=== PATIENT | female | born 1995 | race Caucasian/White ===

== ENCOUNTER 2017-07-08 23:05 | Inpatient (IN) ==
--- NOTE | 2017-07-08 23:37 | Emergency Department Report ---
Fever HPI - General Chief Complaint: Fever Stated Complaint: fever,shakes,v/d Time Seen by Provider: 07/08/17 23:43 Source: patient Limitations: no limitations - History of Present Illness HPI Narrative: Pt is a 22 yo female who presents to ED with fever and chills. Sxs started 5 days ago with fever. Has headache, shaking, sweating, diarrhea yesterday and vomiting x 2. ST. Fatigue. Cough started today. Has tried cold and flu nighttime medicine an ibuprofen. Sxs improve for a short time after taking meds. LMP 2 wks ago. Sexually active and doesn't use any form of birthcontrol. States period was only 2 days long and it is usually 5-7 days. Requests PG test. - Related Data Home Medications Medication Instructions Recorded Confirmed No known Home medications [No home 07/08/17 07/08/17 meds] Allergies Allergy/AdvReac Type Severity Reaction Status Date / Time No Known Allergies Allergy Unverified 07/08/17 23:17 Review of Systems All systems: reviewed and negative except as stated (fever, chills, headache, n/ v, dysuria, small voids at a time, cough) [facility] Patient Stated Medical History Asthma Yes Hx Urinary Tract Infection Yes Chlamydia Yes Surgical History: c/s x 2 Family History: F- - lung cancer M-asthma, IBS, depression - Social History Smoking status: Current every day smoker (1/2ppd) Substance use type: marijuana (usually qd but hasn't while she has been sick) Alcohol intake frequency: 3 or more drinks per day Housing: house Household members: family (mom) 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 Currently uninsured. Physical Exam - Limitations Limitations: no limitations - General General appearance: in no apparent distress - Normal Exams: Head:: Normocephalic without trauma Eyes:: Pupils are PERRLA w/ EOMI Neck:: Full range of motion, without adenopathy Chest/Respirations:: Clear all roberts Cardiovascular:: capillary refill Integumentary:: No rashes Neurological:: Patient is alert, and oriented, exams w/o gross deficits Psychiatric:: Patient exhibits, appropriate attention - Neck Neck exam: Absent: lymphadenopathy - Cardiovascular Cardiovascular exam: Present: tachycardia - Abdominal Exam Abdominal exam: Present: soft, tenderness (R flank and R lateral side), normal bowel sounds. Absent: distention Course Vital Signs Temperature 103.7 F H 07/08/17 23:15 Pulse Rate 138 H 07/08/17 23:15 Respiratory Rate 19 07/08/17 23:15 Blood Pressure 125/73 07/08/17 23:15 Pulse Oximetry 97 07/08/17 23:15 Temperature 103.1 F H 07/09/17 01:01 Pulse Rate 138 H 07/08/17 23:15 Respiratory Rate 19 07/08/17 23:15 Blood Pressure 125/73 07/08/17 23:15 Pulse Oximetry 97 07/08/17 23:15 Fever - MDM Narrative Medical decision making narrative: Patient with pyelonephritis based on + UA, R flank pain, elevated WBC and fever. SIRS: tachy, elevated WBC and fever. Neg lactate. Will check BCx2 prior to starting atbx. Check UC. Continue IV fluids. Pt does not have insurance or PCP. Rec admission for IV atbx, meds for n/v, further IVF's as pt is at risk of lack of f-u care should she be treated on OP basis. Dr. Walter contacted and accepts pt for admission. - Lab Data Attestation: I reviewed the patient's lab results. Result diagrams: 07/09/17 00:05 07/09/17 00:05 Lab Results 07/09/17 07/09/17 07/09/17 Range/Units 00:04 00:05 00:05 WBC 17.2 H (4.5-11.0) T/MM3 RBC 3.79 L (4.00-5.20) M/MM3 Hgb 11.7 L (12-16) GM/DL Hct 35.1 L (36-46) % MCV 92.6 (80-100) UM3 MCH 30.9 (26-34) UUG MCHC 33.3 (31-37) GM/DL RDW Std Deviation 45.6 (36.9-50.2) FL Plt Count 244 (130-400) T/MM3 MPV 10.1 (9.4-12.4) UM3 Immature Gran % (Auto) Not performed Neut % (Auto) Not performed Lymph % (Auto) Not performed Harmon % (Auto) Not performed Eos % (Auto) Not performed Baso % (Auto) Not performed Neut # (Auto) Not performed Lymph # (Auto) Not performed Harmon # (Auto) Not performed Eos # (Auto) Not performed Baso # (Auto) Not performed Abs Immat Gran (auto) Not performed Turbidity (0-20) Sodium (134-144) MEQ/L Potassium (3.6-5) MEQ/L Chloride (98-107) MEQ/L Carbon Dioxide (22-30) MEQ/L Anion Gap (5-15) meq/L BUN (7-17) MG/DL Creatinine (0.7-1.2) mg/dL GFR Calculation BUN/Creatinine Ratio (6-26) RATIO Glucose (65-110) MG/DL Calculated Osmolality (261-280) MOSM/KG Calcium (8.4-10.2) MG/DL Icterus Index (0-7) Plasma Lactate (0.6-2.2) MMOL/L Specimen Hemolysis (0-25) Ur Collection Type Urine, void-cc/notcc Urine Color Yellow (YELLOW) Urine Clarity Sl cloudy Urine pH 5.5 (5.0-8.0) Ur Specific [place] 1.010 L (1.015-1.025) Urine Protein 1+ A (NEGATIVE) Urine Glucose (UA) Negative (NEGATIVE) Urine Ketones Negative (NEGATIVE) Urine Occult Blood 2+ A (NEGATIVE) Urine Nitrate Negative (NEGATIVE) Urine Bilirubin Negative (NEGATIVE) Urine Urobilinogen 2.0 (NORMAL) EU/DL Ur Leukocyte Esterase 1+ A (NEGATIVE) Urine RBC 10-20 H (0-3) /HPF Urine WBC 10-20 H (0-5) /HPF Ur Squamous Epith Cells >50 Urine Bacteria 1+ H (NEGATIVE) Ur Culture Indicated? Cult not indicated Urine Test Negative (Negative) 07/09/17 Range/Units 00:05 WBC (4.5-11.0) T/MM3 RBC (4.00-5.20) M/MM3 Hgb (12-16) GM/DL Hct (36-46) % MCV (80-100) UM3 MCH (26-34) UUG MCHC (31-37) GM/DL RDW Std Deviation (36.9-50.2) FL Plt Count (130-400) T/MM3 MPV (9.4-12.4) UM3 Immature Gran % (Auto) Neut % (Auto) Lymph % (Auto) Harmon % (Auto) Eos % (Auto) Baso % (Auto) Neut # (Auto) Lymph # (Auto) Harmon # (Auto) Eos # (Auto) Baso # (Auto) Abs Immat Gran (auto) Turbidity < 20 (0-20) Sodium 135 (134-144) MEQ/L Potassium 3.3 L (3.6-5) MEQ/L Chloride 98 (98-107) MEQ/L Carbon Dioxide 26 (22-30) MEQ/L Anion Gap 11 (5-15) meq/L BUN 11.0 (7-17) MG/DL Creatinine 0.8 (0.7-1.2) mg/dL GFR Calculation 90 BUN/Creatinine Ratio 14 (6-26) RATIO Glucose 115 H (65-110) MG/DL Calculated Osmolality 260 L (261-280) MOSM/KG Calcium 8.7 (8.4-10.2) MG/DL Icterus Index < 2 (0-7) Plasma Lactate 0.9 (0.6-2.2) MMOL/L Specimen Hemolysis < 15 (0-25) Ur Collection Type Urine Color (YELLOW) Urine Clarity Urine pH (5.0-8.0) Ur Specific [place] (1.015-1.025) Urine Protein (NEGATIVE) Urine Glucose (UA) (NEGATIVE) Urine Ketones (NEGATIVE) Urine Occult Blood (NEGATIVE) Urine Nitrate (NEGATIVE) Urine Bilirubin (NEGATIVE) Urine Urobilinogen (NORMAL) EU/DL Ur Leukocyte Esterase (NEGATIVE) Urine RBC (0-3) /HPF Urine WBC (0-5) /HPF Ur Squamous Epith Cells Urine Bacteria (NEGATIVE) Ur Culture Indicated? Urine Test (Negative) Disposition Clinical Impression: Pyelonephritis [place]position: 02 [place] [facility] [place] Condition: Stable Time of Disposition: 01:05 - Seen By: midlevel
[2017-07-08] MEDS ORDERED: NS 1,000 ML IV ONE (23:53)
[2017-07-08] MEDS ORDERED: PROCHLORPERAZINE 10 MG/2 ML INJECTION IVP ONE (23:54)
[2017-07-08] MEDS ORDERED: SALINE FLUSH 10ml SYRINGE IV PRN (23:55)
--- OUTSIDE RECORDS SUMMARY | 2017-07-09 00:04 | External Medical Summary | Continuity of Care Document ---
:1995 Author Organization [facility] Allergies Active Description Code Type Severity Reaction Onset Reported/ Identified Relationship Clinical to Patient Status Yes No Known No Drug Unknown N/A 12/04/2013 Allergies Known Aller Aller gy gies Medications There is no data. Problems Date Dx Attending Type Code Diagnosis Diagnosed By Coded 12/04/2013 Tiera ROYAL, A 654.23 PREV Niurka C DELIVERY, ANTEPARTUM COND OR COMPLIC 12/05/2013 Tiera ROYAL, F 285.9 ANEMIA NOS Niurka C 12/05/2013 Tiera ROYAL, F 642.31 TRANS Niurka C HYPERTEN-DELIVERED 12/05/2013 Tiera ROYAL, F 648.21 ANEMIA-DELIVERED Niurka C 12/05/2013 Tiera ROYAL, F 654.21 PREV Niurka C DELIVRY W/ OR W/O MENT ANTEPART COND 12/05/2013 Tiera ROYAL, A 654.23 PREV Niurka C DELIVERY, ANTEPARTUM COND OR COMPLIC 12/05/2013 Tiera ROYAL, F 663.81 CORD COMPLICAT Niurka C NEC-DELIV 12/05/2013 Tiera ROYAL, F V04.81 ND FOR PROPHYLACTIC Niurka C VACCIN AND INOCULATION, INFLUE 12/05/2013 Tiera ROYAL, F V07.2 PROPHYLACT Niurka C IMMUNOTHERAPY 12/05/2013 Tiera ROYAL, F V27.0 DELIVER-SINGLE Niurka C LIVEBORN Procedures Code Description Performed By Performed On 74.1 LOW CERVICAL Tiera ROYAL, Niurka Cuellar 12/05/2013 Results Test Result Range CBC - 12/04/13 21:17 MEAN CELL HGB 29.5 pg 27.0-33.0 MEAN CELL HGB CONCENTRATION 33.2 g/dL 32.0-37.0 MEAN CELL VOLUME 88.9 fl 80.0-100.0 RED BLOOD CELL 3.96 m/cumm 4.00-6.00 RED CELL DISTRIBUTION WIDTH 12.8 % 11.0-15.6 WHITE BLOOD CELL 8.6 k/cumm 5.0-10.0 HEMOGLOBIN 11.7 gm/dL 12.0-16.0 HEMATOCRIT 35.2 % 37.0-47.0 PLATELET COUNT 205 k/cumm 150-400 METABOLIC PANEL, COMPREHN - 12/04/13 21:17 POTASSIUM 3.7 mmol/L 3.5-5.3 EST GFR (MDRD) > 60 mL/min > 59 ANION GAP 10 mmol/L 5-15 GLUCOSE 78 mg/dL 70-99 CALCIUM 9.0 mg/dL 8.5-10.1 BLOOD UREA NITROGEN 8 mg/dL 7-20 CREATININE 0.6 mg/dL 0.5-1.0 SODIUM 139 mmol/L 135-148 CHLORIDE 106 mmol/L 98-110 AST/SGOT 36 Units/L 10-37 ALT/SGPT 20 Units/L < 66 CARBON DIOXIDE 23 mmol/L 21-32 TOTAL PROTEIN 6.6 gm/dL 6.4-8.2 ALBUMIN 2.3 gm/dL 3.4-5.0 BILI TOTAL 0.2 mg/dL 0.0-1.0 ALKALINE PHOSPHATASE TOTAL 211 IU/L 45-117 URIC ACID - 12/04/13 21:17 URIC ACID 5.0 mg/dL 2.6-6.0 LACTATE DEHYDROGENASE (LDH/LD) - 12/04/13 21:17 LACTATE DEHYDROGENASE (LDH/LD) 214 Units/L 81-234 CBC - 12/05/13 15:45 MEAN CELL HGB 29.6 pg 27.0-33.0 MEAN CELL HGB CONCENTRATION 33.2 g/dL 32.0-37.0 MEAN CELL VOLUME 89.0 fl 80.0-100.0 RED BLOOD CELL 4.09 m/cumm 4.00-6.00 RED CELL DISTRIBUTION WIDTH 12.9 % 11.0-15.6 WHITE BLOOD CELL 8.4 k/cumm 5.0-10.0 HEMOGLOBIN 12.1 gm/dL 12.0-16.0 HEMATOCRIT 36.4 % 37.0-47.0 PLATELET COUNT 214 k/cumm 150-400 HEMOGLOBIN - 12/05/13 21:07 MEAN CELL VOLUME 87.3 fl 80.0-100.0 HEMOGLOBIN 11.0 gm/dL 12.0-16.0 HEMOGLOBIN - 12/06/13 05:42 MEAN CELL VOLUME 88.0 fl 80.0-100.0 HEMOGLOBIN 9.7 gm/dL 12.0-16.0 Encounters ACCT No. Visit Discharge Status Pt. Type Provider Facility Loc./Unit Complaint Date/Time [id number] 12/05/2013 12/07/2013 DIS Inpatient Tiera [id number] 14:53:00 15:47:00 MD [facility] [id number] 12/04/2013 12/04/2013 DIS Emergency Tiera [id number] 20:03:00 22:36:00 MD [facility] [id number] 10/27/2013 10/27/2013 DIS Outpatient Tiera ROSASU [id number] 10:05:00 10:05:00 MD [facility] [id number] 08/07/2013 08/07/2013 DIS Outpatient cathy ROSASU [id number] 15:11:00 15:11:00 MD [facility] [id number] 12/21/2013 ACT Document 13:27:29 Registration
[2017-07-09] MEDS: SALINE FLUSH 10ml SYRINGE IVF PRN (00:17)
[2017-07-09] MEDS ORDERED: LEVOFLOXACIN PB 750 MG/150 ML BAG IV SCH (01:15)
[2017-07-09] MEDS ORDERED: CEFTRIAXONE (ER USE ONLY) 1 GM in NS 100 ML IV ONE (01:17)
[2017-07-09] MEDS ORDERED: ACETAMINOPHEN 325 MG TABLET PO PRN (01:59)
[2017-07-09] MEDS ORDERED: CEFTRIAXONE (ER USE ONLY) 1 GM in NS 100 ML IV SCH (01:59)
[2017-07-09] MEDS ORDERED: MORPHINE SULFATE 4mg INJECTION IVP PRN (01:59)
[2017-07-09] MEDS ORDERED: NS 1,000 ML IV SCH (01:59)
--- NOTE | 2017-07-09 02:07 | History & Physical Report ---
History of Present Illness Date: 07/09/17 Chief complaint: i feel bad HPI: This is a 22 y/o female who has been experiencing nausea/vomiting with dysuria for the past 5 days. The patient has intermittent diarrhea as well. The patent 's fever has bee as high as 103. She has chills and sweats with this. Further the patient has dysuria, back pain right greater than left. In the ED patient meets sepsis criteria. She is not and her urine is infected. Currently the patient does not have insurance and there were some concerns regarding if she would followup with treatment prescribed. At this time she will be admitted for ivf, iv antibiotics and pain medications. Review of Systems Review of systems: negative except for described above. 10 point RoS Past Medical History Surgical History: c/s x 2 Family History Updates: none significant Family History: As Above - Social History Smoking status: Current every day smoker (1/2ppd) Alcohol intake frequency: 3 or more drinks per day Housing: house Household members: family Current occupational status: employed Current residence: Assisted Medications Home Medications Medication Instructions Recorded Confirmed Type No known Home medications [No home 07/08/17 07/08/17 History meds] Allergies Allergy/AdvReac Type Severity Reaction Status Date / Time No Known Allergies Allergy Unverified 07/08/17 23:17 Exam Vital Signs: Temperature 103.1 F H 07/09/17 01:01 Pulse Rate 128 H 07/09/17 01:15 Respiratory Rate 16 07/09/17 01:15 Blood Pressure 114/60 07/09/17 01:15 Pulse Oximetry 99 07/09/17 01:15 Telemetry Rhythm: Sinus Rhythm - Constitutional Present: mild distress, average body habitus, cooperative - Routine HEENT Exam Head: Present: normocephalic, atraumatic Eye: Present: EOMI ENT: Present: mucous membranes dry - Routine Neck Exam Present: supple - Routine Respiratory Exam Present: CTA bilaterally - Routine Cardiovascular Exam Present: RRR, no murmur - Routine Abdominal Exam Present: soft, firm Comments: mild tender to palpation. - Routine Extremities Exam Present: no edema, non tender, full ROM - Routine Back/Spine/Pelvis Exam Back/Spine: Present: CVA tenderness - Routine Skin Exam Present: intact - Routine Neurological Exam Present: alert, oriented X3, normal tone, normal speech - Routine Psychiatric Exam Present: normal affect, normal thought process Results - Labs CBC & Chem 7: 07/09/17 07:16 07/09/17 07:16 Labs: results reviewed and will be discussed below Assessment and Plan (1) Pyelonephritis Current visit: Yes Status: Acute (2) Hypokalemia Current visit: Yes Status: Acute (3) Sepsis Current visit: Yes Status: Acute (4) Tobacco abuse Current visit: Yes Status: Acute (5) Alcohol abuse Current visit: Yes Status: Acute Assessment and Plan: 1. pyelonephritis acute POA: fluids, rocephin, iv pain meds, oral pain meds, tyl and motrin for fever control, adjust based on culture results 2. sepsis acute POA: fluids, repeat markers in am. lactic acid okay 3. hypokalemia acute POA: gi loss, replace and recheck 4. tobacco abuse chronic POA: insurance counselor to stop 5. alcohol abuse chronic POA: patient will be monitored, no CIWA yet 6. social: patient with no insurance, will need to be addressed from meds at discharge. DVT Prophylaxis: SCD's Resuscitation Status: Full Code - Time spent with patient Time with patient PN: 30 minutes - Physician Narrative Physician: Maricruz Thibodeaux MD Narrative: Date: 07/09/17 Time:1147 CC: Fevers, rigors, N/V/D, fatigue and HORN HPI: 22 y/o female with no significant PMH presented to the ED for the above mentioned complaints that started acutely on Sun morning. She also had dysuria and right sided abdominal and flank pain. She had an elevated white blood count with 7% bands. Her urine analysis was positive for bacteria, white blood cells as well as occult blood. She was admitted with the presumptive diagnosis of pyelonephritis. When seen by me this morning she's feeling much better. She has been given IV fluids as well as IV ceftriaxone. Urine culture is pending. Blood cultures are also pending. She currently denies any fevers or chills. Her flank pain is better. Her dysuria is better. Past medical history: current medications: none Allergies: no known drug allergies Medical history: asthma well-controlled not requiring inhalers for 2 to 3 years Surgical history: 2 C-sections Social history: patient currently lives with her mother. She is employed. She smokes approximately 10 cigarettes a day. She's been smoking for 11 years. The maximum out was one pack a day. She drinks 3 to 4 mixed occult beverages a day and has been doing that for the last 2 months. Family history: mom is alive and well at 40 dad at 52 lung cancer Review of systems: all 14 point review of systems were reviewed and are negative except for as documented in the history of present illness. Physical exam: Gen: alert and oriented. NAD Skin: warm and dry HEENT: NC/AT PERRL, EOMI, Sclera, lids and conjunctiva wnl, MMM, OP clear Neck: supple. No JVD, Carotids 2+ without bruits. Lungs: clear, No rales, rhonchi, wheezes. CV: regular. No murmur, rub or gallop Abd: soft. NT/ND, +BS MS: No edema. Good strength and ROM. Right flank is not TTP Neuro: No focal deficit Psy: normal mood and affect Assessment and Plan: (1) Pyelonephritis -IV Rocephin at IV fluids -could be changed over to oral antibiotics today -encourage PO fluid intake (2) Hypokalemia -replaced and resolved (3) Tobacco abuse -patient encouraged to stop (4) Alcohol abuse -patient insurance counselor on her excessive use. I explained to her that one drink a day is the maximum recommended limit for females social: patient with no insurance, will need to be addressed from meds at discharge. Hospital Course Summary Disclaimer: The visit summary below is not to be considered part of the above Progress Note.
[2017-07-09] MEDS: HYDROCODONE/APAP 5mg/325mg TABLET PO PRN ×3 (02:10→23:58)
[2017-07-09] MEDS: IBUPROFEN 600 MG TABLET PO PRN ×2 (02:10→13:25)
[2017-07-09] MEDS: NS with KCL 20 mEq 1,000 ML IV SCH ×4 (02:16→22:04)
[2017-07-09 05:58] VITALS: BMI 24.3
[2017-07-09] MEDS: CEFTRIAXONE 1 G in NS 100 ML IV SCH (16:49)
[2017-07-09] MEDS: LEVOFLOXACIN PB 750 MG/150 ML BAG IV SCH (18:02)
[2017-07-09] MEDS: ONDANSETRON 4 MG/2 ML INJECTION IVP PRN (19:44)
[2017-07-10] MEDS: NS with KCL 20 mEq 1,000 ML IV SCH ×5 (02:31→19:15)
[2017-07-10] MEDS: IBUPROFEN 600 MG TABLET PO PRN ×2 (07:57→19:49)
--- NOTE | 2017-07-10 08:52 | Progress Note ---
- Date 07/10/17 Subjective: HPI: 22 y/o female with no significant PMH presented to the ED for the above mentioned complaints that started acutely on Sun morning. She also had dysuria and right sided abdominal and flank pain. She had an elevated white blood count with 7% bands. Her urine analysis was positive for bacteria, white blood cells as well as occult blood. She was admitted with the presumptive diagnosis of pyelonephritis. When seen by me this morning she's feeling much better. She has been given IV fluids as well as IV ceftriaxone. Urine culture is pending. Blood cultures are also pending. She currently denies any fevers or chills. Her flank pain is better. Her dysuria is better. 07/10/17 Ms. Rider continues to spike fevers. Her temperature this morning was 102. She states that she no longer has any dysuria. She still has some flank pain but it is better than when she came in. She is able to eat without any problems with nausea vomiting. She denies diarrhea or constipation. She denies any shortness of breath. She denies any chest pain. She is ambulating around the room without difficulty. Objective Vital signs: Temperature 102 F H 07/10/17 07:41 Pulse Rate 101 H 07/10/17 07:41 Respiratory Rate 18 07/10/17 07:41 Blood Pressure 135/82 07/10/17 07:41 Pulse Oximetry 95 07/10/17 07:41 Height/Weight/BMI: Height 1.63 m Weight 66.5 kg Body Mass Index 24.3 Comments: Gen: alert and oriented. NAD Skin: warm and dry HEENT: NC/AT PERRL, EOMI, Sclera, lids and conjunctiva wnl, MMM, OP clear Neck: supple. No JVD, Carotids 2+ without bruits. Lungs: clear, No rales, rhonchi, wheezes. CV: regular. No murmur, rub or gallop Abd: soft. NT/ND, +BS MS: No edema. Good strength and ROM. Right flank is not TTP Neuro: No focal deficit Psy: normal mood and affect Results - Labs CBC & Chem 7: 07/10/17 07:39 07/09/17 07:16 Assessment and Plan (1) Pyelonephritis Current visit: Yes Status: Acute (2) Hypokalemia Current visit: Yes Status: Acute (3) Sepsis Current visit: Yes Status: Acute (4) Tobacco abuse Current visit: Yes Status: Acute (5) Alcohol abuse Current visit: Yes Status: Acute Assessment and Plan: Assessment and Plan: (1) Pyelonephritis/UTI -IV Rocephin, Levaquin and IV fluids -Gm neg yumiko in urine -continues to spike fevers -encourage PO fluid intake -May need to get CT abdomen and pelvis if fevers persist -Blood cx NGTD (2) Hypokalemia -replaced and resolved (3) Tobacco abuse -patient encouraged to stop (4) Alcohol abuse -patient juvenile counselor on her excessive use. I explained to her that one drink a day is the maximum recommended limit for females social: patient with no insurance, will need to be addressed for meds at discharge. - Physician Narrative Narrative: Date: 07/10/17 Time: 0849 Hospital Course Summary Disclaimer: The visit summary below is not to be considered part of the above Progress Note.
[2017-07-10] MEDS: HYDROCODONE/APAP 5mg/325mg TABLET PO PRN ×2 (10:24→17:40)
[2017-07-10] MEDS: ONDANSETRON 4 MG/2 ML INJECTION IVP PRN (14:13)
[2017-07-10] MEDS: CEFTRIAXONE 1 G in NS 100 ML IV SCH (14:13)
[2017-07-10] MEDS: LEVOFLOXACIN PB 750 MG/150 ML BAG IV SCH (17:41)
[2017-07-11] MEDS: NS with KCL 20 mEq 1,000 ML IV SCH ×3 (02:00→11:02)
[2017-07-11] MEDS: HYDROCODONE/APAP 5mg/325mg TABLET PO PRN (02:45)
[2017-07-11] MEDS: IBUPROFEN 600 MG TABLET PO PRN (07:32)
[2017-07-11 07:36] VITALS: BP 138/95; PULSE 88; RESP 20; TEMP 99.2; O2SAT 96
[2017-07-11] MEDS: ONDANSETRON 4 MG/2 ML INJECTION IVP PRN (07:48)
--- NOTE | 2017-07-11 10:16 | Discharge Summary ---
Discharge Information Date of admission: 07/09/17 01:18 Anticipated date of discharge: 07/11/17 Attending Physician: Maricruz Thibodeaux MD - Discharge Diagnosis (1) Pyelonephritis Status: Acute (2) Hypokalemia Status: Acute (3) Sepsis Status: Acute (4) Tobacco abuse Status: Acute (5) Alcohol abuse Status: Acute pyelonephritis E Coli UTI ETOH abuse Nicotine abuse - Laboratory Labs: 07/11/17 04:17 07/11/17 04:17 - Microbiology BLood cultures negative after 2 days Urine culture grew pansensitive E. Coli. History of Present Illness HPI: This is a 22 y/o female who has been experiencing nausea/vomiting with dysuria for the past 5 days. The patient has intermittent diarrhea as well. The patent 's fever has bee as high as 103. She has chills and sweats with this. Further the patient has dysuria, back pain right greater than left. In the ED patient meets sepsis criteria. She is not and her urine is infected. Currently the patient does not have insurance and there were some concerns regarding if she would followup with treatment prescribed. At this time she will be admitted for ivf, iv antibiotics and pain medications. Objective Vital signs: Temperature 99.2 F 07/11/17 07:34 Pulse Rate 88 07/11/17 07:34 Respiratory Rate 20 07/11/17 07:34 Blood Pressure 138/95 H 07/11/17 07:34 Pulse Oximetry 96 07/11/17 07:34 Height/Weight/BMI: Height 1.63 m Weight 64.1 kg Body Mass Index 24.3 Comments: Gen: alert and oriented. NAD Skin: warm and dry HEENT: NC/AT PERRL, EOMI, Sclera, lids and conjunctiva wnl, MMM, OP clear Neck: supple. No JVD, Carotids 2+ without bruits. Lungs: clear, No rales, rhonchi, wheezes. CV: regular. No murmur, rub or gallop Abd: soft. NT/ND, +BS MS: No edema. Good strength and ROM. Right flank is not TTP Neuro: No focal deficit Psy: normal mood and affect Hospital Course This is a general summary of the patient's hospital course. For more details refer to the complete medical record. Hospital course: Ms. Tereso was admitted with the presumptive diagnosis pyelonephritis. Her blood cultures were negative after 2 days. Her urine culture to grow out E. coli that was pain sensitive. She continued to spike fevers up to 102 on 07/10/17 but has been afebrile since. She was feeling much better this morning. She has been up and ambulating without difficulty. She was felt to be stable to discharged home on continued antibiotics to complete the antibiotic course. Time spent with patient: 25 - 35 minutes Resuscitation Status: Full Code Discharge Plan - Discharge Disposition Discharge Date: 07/11/17 Disposition: Discharged Home, Self-Care *Condition: Stable Reason For Visit (Visit label in EMR): uti,pyelo - Discharge Medications *Discharge Medications: New Levofloxacin [Levaquin] 750 mg PO ACB #7 tab - Discharge Packet/Instructions *Diet: As tolerated *Activity: As tolerated *Pain Management/Treatment: Tylenol *Wound Care: Not applicable *Expected Signs/Symptoms: Not applicable *Notify Physician if: Worsening flank pain or painful urination. Fevers or chills *During Business Hours Contact: Need to establish care with the primary care provider. [facility] Until then go to Emergency room *After Business Hours Contact: Emergency room *Pending Lab/Results: No Pending Lab - Referrals/Follow Up *Referrals/Follow Up: Jhonatan Mena DO [Physician] - 1 Week (Patient has been advised to call [facility] and get established in their system for follow-up care. I've instructed her to try to get him within the week.) - Patient Handouts Patient Handouts: Urinary Tract Infection in Women (GEN) - Dismissal Complete Discharge Instructions are:: Complete Physician Narrative - Narrative Attestation Narrative: Date: 07/11/17 Time: 1013
[2017-07-11] MEDS: SALINE FLUSH 10ml SYRINGE IVF PRN (10:25)
[2017-07-12] MEDS ORDERED: LEVOFLOXACIN 750 MG TABLET PO SCH (06:30)
== END 2017-07-11 12:48 | disposition home or self-care (01) | DRG 872 ==
LOC: ED 23:05 → MED 07-09 01:18 → SUATTDRO 07-09 01:18 → MED 07-09 01:40
PROVIDERS: ADMIT Emergency Medicine; ATTEND Internal Medicine Cardiovascular Disease